=== PATIENT | male | born 1940 | race Caucasian/White ===

== ENCOUNTER 2017-11-18 13:01 | Outpatient (CLI) | payer MEDICARE ==
--- NOTE | 2017-11-18 13:56 | RAD ---
TWO VIEWS CHEST: HISTORY: Cough. COMPARISON: None. FINDINGS: Normal cardiac silhouette. The pulmonary vessels and hilum are normal. Costophrenic angles are colette r. No mass. No consolidation. NO pneumothorax or osseous abnormalities. IMPRESSION: No acute cardiopulmonary process. POS: [facility]
== END 2017-11-18 13:02 | disposition home or self-care (01) ==
LOC: MADRAD 13:01
PROVIDERS: ATTEND Physician Assistant
DX: R05 Cough (principal)
CPT/HCPCS: 71046

== ENCOUNTER 2018-03-14 04:41 | Emergency (ER) | payer MEDICARE ==
[2018-03-14] MEDS ORDERED: HYDROcodone/Acetaminophen 5/325 mg Tablet ONE (05:20)
[2018-03-14] MEDS ORDERED: Ibuprofen 800 MG TAB ONE (05:21)
[2018-03-14] MEDS ORDERED: Acetaminophen 325 MG TAB ONE (05:21)
== END 2018-03-14 06:25 | disposition home or self-care (01) ==
LOC: MADERS 04:41
DX: M79.605 Pain in left leg (principal); E03.9 Hypothyroidism, unspecified; I10 Essential (primary) hypertension; F17.210 Nicotine dependence, cigarettes, uncomplicated; Z79.82 Long term (current) use of aspirin; Z79.899 Other long term (current) drug therapy
CPT/HCPCS: 99283